=== PATIENT | female | born 1985 | race Caucasian/White ===

== ENCOUNTER 2016-12-28 09:35 | Outpatient (CLI) | payer MEDICAID ==
[2016-12-28 14:14] LABS: BASOPHILS % (AUTO) 0.6 %; EOSINOPHILS # (AUTO) 0.1 10^3/uL (0.0-0.7); EOSINOPHILS % (AUTO) 1.2 %; HCT - HEMATOCRIT 38.8 % (37.0-47.0); HGB - HEMOGLOBIN 13.6 g/dL (12.0-16.0); LYMPHOCYTES # (AUTO) 1.3 10^3/uL (1.5-3.5); LYMPHOCYTES % (AUTO) 28.4 %; MEAN CORPUSCULAR HEMOGLOBIN 33.6 pg (27.0-31.0); MEAN PLATELET VOLUME 9.1 fL (7.9-10.8); MONOCYTES # (AUTO) 0.4 10^3/uL (0.0-1.0); MONOCYTES % (AUTO) 7.8 %; NEUTROPHILS # (AUTO) 2.8 10^3/uL (1.5-6.6); RED BLOOD COUNT 4.04 10^6/uL (4.20-5.40); RED CELL DISTRIBUTION WIDTH 11.7 % (12.0-15.0); UNCORRECTED WHITE BLOOD COUNT 4.5 x10^3/uL; WHITE BLOOD COUNT 4.5 x10^3/uL (4.8-10.8)
[2016-12-28 14:32] LABS: ALBUMIN/GLOBULIN RATIO 1.9 (1.0-2.2); BUN - BLOOD UREA NITROGEN 8 mg/dL (6-20); CALCIUM 9.5 mg/dL (8.5-10.3); CARBON DIOXIDE - CO2 27 mmol/L (21-32); CHLORIDE 103 mmol/L (101-111); CHOL/HDL RATIO 2.8 (<4.4); CHOLESTEROL 174 mg/dL; CREATININE 0.7 mg/dL (0.4-1.0); GFR - MDRD 97 (>89); GLUCOSE 92 mg/dL (70-100); HDL CHOLESTEROL 63 mg/dL; LDL/HDL RATIO 1.5 (<4.4); POTASSIUM 3.9 mmol/L (3.5-5.0); SODIUM 135 mmol/L (135-145); TOTAL PROTEIN 6.6 g/dL (6.7-8.2); TRIGLYCERIDES 73 mg/dL; VLDL CHOLESTEROL 15 mg/dL
[2016-12-28 14:58] LABS: THYROID STIMULATING HORMONE 1.37 uIU/mL (0.34-5.60)
== END 2016-12-28 09:36 | disposition home or self-care (01) ==
LOC: LAB.N 09:35
PROVIDERS: ATTEND Family Medicine
DX: N92.6 Irregular menstruation, unspecified (principal); G40.89 Other seizures; Z51.81 Encounter for therapeutic drug level monitoring
CPT/HCPCS: 36415; 80053; 80061; 84439; 84443; 85025

== ENCOUNTER 2017-06-01 10:59 | Emergency (ER) | payer MEDICAID ==
[2017-06-01 11:14] VITALS: BP 125/78
--- NOTE | 2017-06-01 12:10 | ED Physician Documentation ---
PD HPI URI - Stated complaint Stated Complaint: SORE THROAT,H/A - Chief complaint Chief Complaint: Resp - History obtained from History obtained from: Patient - History of Present Illness Timing - onset: Other (3 days of illness including cough, sore throat, runny nose, all over body pain especially the lungs and fevers and chills.) Review of Systems Constitutional: reports: Fever, Chills, Myalgias, Fatigue Nose: reports: Rhinorrhea / runny nose Throat: reports: Sore throat Respiratory: reports: Dyspnea, Cough GI: denies: Abdominal Pain PD PAST MEDICAL HISTORY - Past Medical History Past Medical History: Yes Neuro: Seizure disorder - Past Surgical History Past Surgical History: Yes Ortho: Spine surgery - Present Medications Home Medications: Ambulatory Orders Medication Instructions Recorded Confirmed Azithromycin [Zithromax] 250 mg PO DAILY #6 tablet 06/01/17 Ibuprofen [Motrin] 800 mg PO Q8H PRN #30 tablet 06/01/17 Levetiracetam [Keppra Xr] 1,500 mg PO BID 06/01/17 06/01/17 - Allergies Allergies/Adverse Reactions: Allergies Allergy/AdvReac Type Severity Reaction Status Date / Time No Known Drug Allergies Allergy Verified 06/01/17 11:13 - Social History Does the pt smoke?: Yes Smoking Status: Current every day smoker Does the pt drink ETOH?: Yes ETOH Use: Beer Does the pt have substance abuse?: No - Immunizations Immunizations are current?: Yes - POLST Patient has POLST: No PD ED PE NORMAL - Vitals Vital signs reviewed: Yes - General General: Alert and oriented X 3, No acute distress - HEENT HEENT: PERRL, EOMI, Ears normal, Moist mucous membranes, Pharynx benign - Neck Neck: Supple, no meningeal sign, No bony TTP - Cardiac Cardiac: RRR, No murmur - Respiratory Respiratory: No respiratory distress, Clear bilaterally - Abdomen Abdomen: Non tender - Derm Derm: No rash - Neuro Neuro: Alert and oriented X 3, Normal speech - Psych Psych: Normal mood, Normal affect Results - Vitals Vitals: Vital Signs - 24 hr 06/01/17 11:08 Temperature 37.5 C Heart Rate 94 Respiratory 18 Rate Blood Pressure 125/78 O2 Saturation 97 Oxygen O2 Source Room air - Rads (name of study) 2v chest Radiology: EMP read contemporaneously (perihilar and bibasilar infiltrates) PD MEDICAL DECISION MAKING - ED course ED course: Likely influenza, somewhat irrelevant at this point as she is out of the timeframe for Tamiflu effectiveness. She is very worried about pneumonia despite no clinical evidence of this, chest x-ray ordered. Departure - Departure Disposition: 01 Home, Self Care Clinical Impression: Upper respiratory tract infection Qualifiers: URI type: unspecified viral URI Qualified Code(s): J06.9 - Acute upper respiratory infection, unspecified Pneumonia Qualifiers: Pneumonia type: due to unspecified organism Laterality: bilateral Lung location : unspecified part of lung Qualified Code(s): J18.9 - Pneumonia, unspecified organism Condition: Good Record reviewed to determine appropriate education?: Yes Instructions: ED Viral Syndrome Prescriptions: Azithromycin [Zithromax] 250 mg PO DAILY #6 tablet Ibuprofen [Motrin] 800 mg PO Q8H PRN #30 tablet PRN Reason: PAIN &/OR FEVER Comments: Call your doctor to arrange a follow-up appointment, make the next available appointment. In the interim, return anytime if worse or if new symptoms develop.
--- NOTE | 2017-06-01 13:35 | XRAY Preliminary Report ---
Exam: XR CHEST 2 VIEW X-RAY IMPRESSION: 1. Bilateral perihilar and anterior bibasilar infiltrates. 2. Mediastinal adenopathy. [facility] SITE ID: [id number]
--- NOTE | 2017-06-01 14:34 | XRAY Report ---
EXAM: CHEST RADIOGRAPHY EXAM DATE: 06/01/2017 12:39 PM. CLINICAL HISTORY: Cough, midsternal chest pain and dyspnea for 2 days. COMPARISON: None. TECHNIQUE: 2 views. FINDINGS: Lungs/Pleura: Moderate bilateral perihilar interstitial infiltrates. Patchy interstitial infiltrates right middle lobe and lingula. Normal lung volumes. No effusion, vascular congestion nor pneumothorax . Mediastinum: Heart is normal caliber. Widening of the paratracheal stripes. No tracheal shift. Other: None. IMPRESSION: 1. Bilateral perihilar and anterior bibasilar infiltrates. 2. Mediastinal adenopathy. [facility] Referring Provider Line: [phone] SITE ID: [id number]
== END 2017-06-01 14:00 | disposition home or self-care (01) ==
LOC: ED 10:59
DX: J18.9 Pneumonia, unspecified organism (principal); J06.9 Acute upper respiratory infection, unspecified; B97.89 Other viral agents as the cause of diseases classified elsewhere; G40.909 Epilepsy, unspecified, not intractable, without status epilepticus; F17.200 Nicotine dependence, unspecified, uncomplicated
CPT/HCPCS: 71046; 99283

== ENCOUNTER 2017-06-07 09:52 | Outpatient (CLI) | payer MEDICAID ==
[2017-06-11 09:57] LABS: LEVETIRACETAM (KEPPRA) LEVEL 28.7 mcg/mL
== END 2017-06-07 09:53 | disposition home or self-care (01) ==
LOC: LAB.N 09:52
PROVIDERS: ATTEND Psychiatry & Neurology Neurology
DX: G40.409 Other generalized epilepsy and epileptic syndromes, not intractable, without status epilepticus (principal); E55.9 Vitamin D deficiency, unspecified
CPT/HCPCS: 36415; 80177; 82306; 82652

== ENCOUNTER 2017-09-13 11:45 | Outpatient (CLI) | payer OTHER, MEDICAID | END 2017-09-13 12:00 | disposition home or self-care (01) | LOC: RT.N 11:45 | PROVIDERS: ATTEND Nurse Practitioner Gerontology | DX: R07.9 Chest pain, unspecified (principal); J30.2 Other seasonal allergic rhinitis; J06.9 Acute upper respiratory infection, unspecified; D48.5 Neoplasm of uncertain behavior of skin | CPT/HCPCS: 93005 ==

== ENCOUNTER 2017-11-14 16:07 | Outpatient (CLI) | payer OTHER, MEDICAID ==
--- NOTE | 2017-11-15 08:55 | XRAY Report ---
Procedure Date: 11/14/2017 Accession Number: [id number] / [id number] Procedure: XR - Chest 2 View X-Ray CPT Code: 06144 FULL RESULT: EXAM: Chest 2 View X-Ray DATE: 11/14/2017 4:24 PM CLINICAL HISTORY: CHEST PAIN COMPARISON: 06/01/2017. TECHNIQUE: 2 views. FINDINGS: Lungs/Pleura: No focal opacities evident. No pneumothorax or pleural effusion. Normal volumes. Mediastinum: Heart and mediastinal contours are unremarkable. Other: None. IMPRESSION: Normal 2-view chest radiography. [facility]
== END 2017-11-14 16:08 | disposition home or self-care (01) ==
LOC: DI 16:07
PROVIDERS: ATTEND Family Medicine
DX: R07.9 Chest pain, unspecified (principal)
CPT/HCPCS: 71046

== ENCOUNTER 2019-07-11 07:16 | Outpatient (CLI) | payer OTHER ==
[2019-07-11 12:10] LABS: BASOPHILS % (AUTO) 0.3 %; EOSINOPHILS # (AUTO) 0.1 10^3/uL (0.0-0.7); EOSINOPHILS % (AUTO) 1.3 %; HGB - HEMOGLOBIN 13.9 g/dL (12.0-16.0); LYMPHOCYTES # (AUTO) 1.5 10^3/uL (1.5-3.5); LYMPHOCYTES % (AUTO) 23.9 %; MEAN CORPUSCULAR HEMOGLOBIN 32.8 pg (27.0-31.0); MEAN CORPUSCULAR HGB CONC 34.3 g/dL (32.0-36.0); MEAN CORPUSCULAR VOLUME 95.5 fL (81.0-99.0); MEAN PLATELET VOLUME 11.1 fL (7.9-10.8); MONOCYTES # (AUTO) 0.5 10^3/uL (0.0-1.0); MONOCYTES % (AUTO) 7.4 %; NEUTROPHILS # (AUTO) 4.1 10^3/uL (1.5-6.6); NEUTROPHILS % (AUTO) 66.8 %; PLT - PLATELET COUNT 213 10^3/uL (130-450); RED BLOOD COUNT 4.24 10^6/uL (4.20-5.40); RED CELL DISTRIBUTION WIDTH 11.9 % (12.0-15.0); WHITE BLOOD COUNT 6.1 x10^3/uL (4.8-10.8)
[2019-07-11 12:21] LABS: ALBUMIN 4.4 g/dL (3.2-5.5); ALBUMIN/GLOBULIN RATIO 1.9 (1.0-2.2); BILIRUBIN,TOTAL 1.1 mg/dL (0.2-1.0); CALCIUM 10.2 mg/dL (8.5-10.3); CREATININE 0.7 mg/dL (0.4-1.0); TOTAL PROTEIN 6.7 g/dL (6.7-8.2)
== END 2019-07-11 23:59 | disposition home or self-care (01) ==
LOC: LAB.N 07:16
PROVIDERS: ATTEND Nurse Practitioner Gerontology
DX: R53.83 Other fatigue (principal)
CPT/HCPCS: 36415; 80053; 84443; 85025

== ENCOUNTER 2019-08-02 21:54 | Emergency (ER) | payer OTHER ==
--- NOTE | 2019-08-02 21:59 | ED Physician Documentation ---
PD HPI CHEST PAIN - Stated complaint Stated Complaint: CHEST PRESSURE - Chief complaint Chief Complaint: Cardiac - History obtained from History obtained from: Patient (Patient is a very pleasant 34-year-old female who presents with a chief complaint of palpitations. takes vimpat for seizures. The patient is also complaining of anxiety and she is very concerned that she could have covid 19.The patient denies any syncopal episodes she denies any fevers, cough, headache, neck pain, rashes, sore throat, runny nose. She denies any history of pulmonary embolism or DVT she denies any exogenous estrogen use she denies any recent surgeries she denies any personal family history of hypercoagulability denies any family history of sudden in young age and mother, father, brother sister.Patient denies any illicit drug use.) Review of Systems Constitutional: reports: Reviewed and negative Eyes: reports: Reviewed and negative Ears: reports: Reviewed and negative Nose: reports: Reviewed and negative Throat: reports: Reviewed and negative Cardiac: reports: Chest pain / pressure, Palpitations Respiratory: reports: Reviewed and negative GI: reports: Reviewed and negative : reports: Reviewed and negative Skin: reports: Reviewed and negative Musculoskeletal: reports: Reviewed and negative Neurologic: reports: Reviewed and negative Psychiatric: reports: Reviewed and negative Endocrine: reports: Reviewed and negative Immunocompromised: reports: Reviewed and negative PD PAST MEDICAL HISTORY - Past Surgical History Past Surgical History: Yes Ortho: Spine surgery - Present Medications Home Medications: Ambulatory Orders Medication Instructions Recorded Confirmed Lacosamide [Vimpat] 100 mg PO BID 08/02/19 08/02/19 - Allergies Allergies/Adverse Reactions: Allergies Allergy/AdvReac Type Severity Reaction Status Date / Time No Known Drug Allergies Allergy Verified 08/02/19 21:59 - Social History Does the pt smoke?: Yes Smoking Status: Current every day smoker Does the pt drink ETOH?: Yes Does the pt have substance abuse?: No - Immunizations Immunizations are current?: Yes - POLST Patient has POLST: No PD ED PE NORMAL - Vitals Vital signs reviewed: Yes - General General: Alert and oriented X 3, No acute distress, Well developed/nourished - HEENT HEENT: Atraumatic, PERRL, Pharynx benign - Neck Neck: Supple, no meningeal sign, No bony TTP, No adenopathy, Thyroid normal, No JVD - Cardiac Cardiac: RRR, No murmur, No gallop, No rub, Strong equal pulses - Respiratory Respiratory: No respiratory distress, Clear bilaterally - Abdomen Abdomen: Normal bowel sounds, Soft, Non tender, Non distended, No organomegaly - Female Female : Pt declined - Rectal Rectal: Pt declined - Back Back: No CVA TTP, No spinal TTP - Derm Derm: Normal color, Warm and dry, No rash - Extremities Extremities: No deformity, No tenderness to palpate, Normal ROM s pain, No edema, No calf tenderness / cord - Neuro Neuro: Alert and oriented X 3, 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, No motor deficit, No sensory deficit, Normal speech - Psych Psych: Normal mood, Normal affect Results - Vitals Vitals: Vital Signs - 24 hr 08/02/19 08/02/19 08/02/19 21:58 22:00 22:10 Temperature 37.0 C Heart Rate 77 79 Respiratory 16 16 Rate Blood Pressure 141/88 H 141/88 H Blood Pressure 141/88 H [Left] Blood Pressure 119/63 [Right] O2 Saturation 100 100 08/02/19 08/02/19 08/02/19 22:34 22:50 23:05 Temperature Heart Rate 78 73 79 Respiratory 24 20 16 Rate Blood Pressure 119/63 116/70 130/82 H Blood Pressure [Left] Blood Pressure [Right] O2 Saturation 98 98 98 Oxygen O2 Source Room air - EKG (time done) 22:05 Rate: Other (no stemi) - Labs Labs: Laboratory Tests 08/02/19 08/02/19 08/02/19 22:00 22:00 22:00 WBC 5.9 RBC 4.49 Hgb 14.2 Hct 42.4 MCV 94.4 MCH 31.6 H MCHC 33.5 RDW 12.0 Plt Count 192 MPV 10.0 Neut # (Auto) 3.3 Lymph # (Auto) 1.9 [place] # (Auto) 0.5 Eos # (Auto) 0.1 Baso # (Auto) 0.0 Absolute Nucleated RBC 0.00 Nucleated RBC % 0.0 Sodium 136 Potassium 3.5 Chloride 103 Carbon Dioxide 25 Anion Gap 8.0 BUN 9 Creatinine 0.7 Estimated GFR (MDRD) 95 Glucose 99 Calcium 10.3 Total Bilirubin 0.4 AST 17 ALT 18 Alkaline Phosphatase 61 Troponin I High Sens < 2.3 L Total Protein 7.5 Albumin 4.6 Globulin 2.9 Albumin/Globulin Ratio 1.6 Lipase 28 PD MEDICAL DECISION MAKING - ED course Complexity details: considered differential (heart score 0, perc 0. patient c/o anxiety and is concerned she could have covid 19. ekg is unremarkable, no cough, no fever, hx and exam are unremarkable.) Departure - Departure Disposition: 01 Home, Self Care Clinical Impression: Palpitations Condition: Stable Instructions: ED Chest Pain NonCardiac, ED Palpitations Follow-Up: your, doctor [Other] - Tomorrow
[2019-08-02 22:17] LABS: BASOPHILS % (AUTO) 0.3 %; EOSINOPHILS # (AUTO) 0.1 10^3/uL (0.0-0.7); EOSINOPHILS % (AUTO) 1.5 %; HGB - HEMOGLOBIN 14.2 g/dL (12.0-16.0); LYMPHOCYTES # (AUTO) 1.9 10^3/uL (1.5-3.5); LYMPHOCYTES % (AUTO) 32.1 %; MEAN CORPUSCULAR HEMOGLOBIN 31.6 pg (27.0-31.0); MEAN CORPUSCULAR HGB CONC 33.5 g/dL (32.0-36.0); MEAN CORPUSCULAR VOLUME 94.4 fL (81.0-99.0); MONOCYTES # (AUTO) 0.5 10^3/uL (0.0-1.0); NEUTROPHILS # (AUTO) 3.3 10^3/uL (1.5-6.6); NEUTROPHILS % (AUTO) 56.8 %; PLT - PLATELET COUNT 192 10^3/uL (130-450); RED BLOOD COUNT 4.49 10^6/uL (4.20-5.40); WHITE BLOOD COUNT 5.9 x10^3/uL (4.8-10.8)
[2019-08-02 22:34] LABS: ALBUMIN 4.6 g/dL (3.2-5.5); ALBUMIN/GLOBULIN RATIO 1.6 (1.0-2.2); BILIRUBIN,TOTAL 0.4 mg/dL (0.2-1.0); CALCIUM 10.3 mg/dL (8.5-10.3); CREATININE 0.7 mg/dL (0.4-1.0); TOTAL PROTEIN 7.5 g/dL (6.7-8.2)
[2019-08-02] MEDS ORDERED: LORazepam 2 MG/ML VIAL IVP STA (22:42)
[2019-08-02 23:06] VITALS: BP 130/82
--- NOTE | 2019-08-02 23:06 | XRAY Report ---
Reason: cp Procedure Date: 08/02/2019 Accession Number: [id number] / [id number] Procedure: XR - Chest 1 View X-Ray CPT Code: 76758 Final Report FULL RESULT: EXAM: CHEST RADIOGRAPHY EXAM DATE: 08/02/2019 10:28 PM. CLINICAL HISTORY: Cp. COMPARISON: CHEST 2 VIEW 11/14/2017 4:14 PM. TECHNIQUE: 1 view. FINDINGS: Lungs/Pleura: No focal opacities evident. No pleural effusion. No pneumothorax. Mediastinum: Within exam limitations, the cardiomediastinal contour is normal. Other: None. IMPRESSION: Normal single view chest. [facility]
== END 2019-08-02 23:19 | disposition home or self-care (01) ==
LOC: ED 21:54
DX: R00.2 Palpitations (principal); F17.200 Nicotine dependence, unspecified, uncomplicated
CPT/HCPCS: 36415; 71045; 80053; 83690; 84484; 85025; 93005; 96374; 99283; 99284; J2060

== ENCOUNTER 2019-10-24 13:20 | Emergency (ER) | payer OTHER ==
[2019-10-24 13:27] VITALS: BP 145/85
--- NOTE | 2019-10-24 13:36 | ED Physician Documentation ---
History of Present Illness - Stated complaint Stated Complaint: MED REFILL - Chief complaint Chief Complaint: General - History obtained from History obtained from: Patient - History of Present Illness Timing: Today Pain level max: 0 Pain level now: 0 - Additonal information Additional information: Patient is out of her Vimpat, neurology told her to come here as there was no one to prescribe for her. She is on 100 mg p.o. twice daily. Review of Systems Constitutional: denies: Fever GI: denies: Vomiting : denies: Now EGA PD PAST MEDICAL HISTORY - Past Medical History Past Medical History: Yes Neuro: Seizure disorder - Past Surgical History Past Surgical History: Yes Ortho: Spine surgery Derm: Other - Present Medications Home Medications: Ambulatory Orders Medication Instructions Recorded Confirmed Lacosamide [Vimpat] 100 mg PO BID 08/02/19 08/02/19 Lacosamide [Vimpat] 100 mg PO BID #60 tablet 10/24/19 - Allergies Allergies/Adverse Reactions: Allergies Allergy/AdvReac Type Severity Reaction Status Date / Time No Known Drug Allergies Allergy Verified 10/24/19 13:24 - Social History Does the pt smoke?: Yes Smoking Status: Current every day smoker Does the pt drink ETOH?: Yes Does the pt have substance abuse?: No - Immunizations Immunizations are current?: Yes - POLST Patient has POLST: No PD ED PE NORMAL - Vitals Vital signs reviewed: Yes - General General: Alert and oriented X 3, No acute distress - HEENT HEENT: Moist mucous membranes - Neck Neck: Supple, no meningeal sign - Cardiac Cardiac: RRR - Respiratory Respiratory: No respiratory distress, Clear bilaterally - Derm Derm: Warm and dry - Neuro Neuro: Alert and oriented X 3 Results - Vitals Vitals: Vital Signs - 24 hr 10/24/19 13:24 Temperature 36.5 C Heart Rate 76 Respiratory 16 Rate Blood Pressure 145/85 H O2 Saturation 99 Oxygen O2 Source Room air PD MEDICAL DECISION MAKING - ED course Complexity details: considered differential, d/w patient ED course: Medication was refilled. She will follow-up with her doctor for further refills. This document was made in part using voice recognition software. While efforts are made to proofread this document, sound alike and grammatical errors may occur. Departure - Departure Disposition: 01 Home, Self Care Clinical Impression: Seizures Condition: Good Follow-Up: your,doctor as needed [Other] Prescriptions: Lacosamide [Vimpat] 100 mg PO BID #60 tablet Comments: Follow-up with your doctor for further care. Return if you worsen.
== END 2019-10-24 13:45 | disposition home or self-care (01) ==
LOC: ED 13:20
DX: G40.909 Epilepsy, unspecified, not intractable, without status epilepticus (principal); Z76.0 Encounter for issue of repeat prescription; F17.200 Nicotine dependence, unspecified, uncomplicated
CPT/HCPCS: 99282; 99283

== ENCOUNTER 2021-01-12 08:00 | Outpatient (CLI) | payer OTHER | END 2021-01-12 23:59 | disposition home or self-care (01) | LOC: LAB.N 08:00 | PROVIDERS: ATTEND Family Medicine | DX: U07.1 COVID-19 (principal) | CPT/HCPCS: 87070; 87077 ==

== ENCOUNTER 2021-01-12 08:00 | Outpatient (CLI) | payer OTHER | END 2021-01-12 23:59 | disposition home or self-care (01) | LOC: LAB.N 08:00 | PROVIDERS: ATTEND Family Medicine | DX: U07.1 COVID-19 (principal) ==

== ENCOUNTER 2021-01-25 14:45 | Outpatient (CLI) | payer OTHER | END 2021-01-25 23:59 | disposition home or self-care (01) | LOC: LAB.N 14:45 | PROVIDERS: ATTEND Family Medicine | DX: M79.661 Pain in right lower leg (principal) | CPT/HCPCS: 36415; 85379 ==

== ENCOUNTER 2022-08-30 16:51 | Outpatient (CLI) | payer OTHER | END 2022-08-30 23:59 | disposition critical access hospital (66) | LOC: EMS 16:51 | DX: R56.9 Unspecified convulsions (principal) | CPT/HCPCS: A0425; A0429 ==

== ENCOUNTER 2022-08-30 17:09 | Emergency (ER) | payer OTHER ==
[2022-08-30] MEDS ORDERED: SODIUM CHLORIDE 0.9% 1,000 ML IV STA (17:27)
--- NOTE | 2022-08-30 17:29 | ED Physician Documentation ---
History of Present Illness - Stated complaint Stated Complaint: SZ - Chief complaint Chief Complaint: Neuro - Additonal information Additional information: 37-year-old female presents emergency department for evaluation of a seizure. She does have a known seizure disorder. Currently takes lacosamide 100 mg twice daily. States she has not had a seizure for about 10 years. Followed by neurology at [facility]. States that for the last 2 days she has had some lower abdominal pain and diarrhea. States she felt off all day. She thought that she felt a seizure coming on and she ran to find a safe place however ultimately she seized falling to the ground. Per EMS witnesses report that she seized for about 30 seconds. She was postictal in route for EMS with confusion though by the time she arrives here she no longer is confused. She was not hypoglycemic. Currently reporting a severe headache on the left side of her head as well as left shoulder. Review of Systems Constitutional: denies: Fever Throat: reports: Reviewed and negative Cardiac: reports: Reviewed and negative Respiratory: reports: Reviewed and negative GI: reports: Diarrhea : reports: Reviewed and negative Skin: reports: Reviewed and negative Neurologic: reports: Seizure, Head injury. denies: Headache Psychiatric: reports: Reviewed and negative Endocrine: reports: Reviewed and negative PD PAST MEDICAL HISTORY - Past Medical History Neuro: Seizure disorder - Past Surgical History Past Surgical History: Yes Ortho: Spine surgery Derm: Other - Present Medications Home Medications: Ambulatory Orders Medication Instructions Recorded Confirmed Lacosamide [Vimpat] 100 mg PO BID #60 tablet 10/24/19 08/30/22 oxyCODONE [Roxicodone] 5 mg PO TID PRN #10 tablet 08/30/22 - Allergies Allergies/Adverse Reactions: Allergies Allergy/AdvReac Type Severity Reaction Status Date / Time No Known Drug Allergies Allergy Verified 08/30/22 17:19 - Social History Does the pt smoke?: Yes Smoking Status: Current every day smoker Does the pt drink ETOH?: Yes Does the pt have substance abuse?: No - Immunizations Immunizations are current?: Yes - POLST Patient has POLST: No PD ED PE NORMAL - General General: Alert and oriented X 3, No acute distress, Well developed/nourished - HEENT HEENT: Atraumatic, Moist mucous membranes - Neck Neck: Other (Patient presents with a rigid cervical collar; 1900: I personally remove the collar at the bedside. There was no midline tenderness elicited. 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, No motor deficit, Normal speech Eye Opening: Spontaneous Motor: Obeys Commands Verbal: Oriented GCS Score: 15 Results - Vitals Vitals: Vital Signs - 24 hr 08/30/22 17:17 Temperature 37.1 C Heart Rate 112 H Respiratory 22 Rate Blood Pressure 143/98 H O2 Saturation 98 Oxygen O2 Source Room air - Labs Labs: Laboratory Tests 08/30/22 08/30/22 08/30/22 17:30 17:30 18:45 WBC 7.6 RBC 4.33 Hgb 13.8 Hct 40.3 MCV 93.1 MCH 31.9 H MCHC 34.2 RDW 11.9 L Plt Count 192 MPV 10.2 Neut # (Auto) 5.4 Lymph # (Auto) 1.5 [place] # (Auto) 0.4 Eos # (Auto) 0.2 Baso # (Auto) 0.0 Absolute Nucleated RBC 0.00 Nucleated RBC % 0.0 Sodium 139 Potassium 3.6 Chloride 103 Carbon Dioxide 25 Anion Gap 11.0 BUN 10 Creatinine 0.6 Estimated GFR (MDRD) 112 Glucose 98 Calcium 9.4 Total Bilirubin 0.4 AST 18 ALT 15 Alkaline Phosphatase 54 Total Protein 7.1 Albumin 4.4 Globulin 2.7 Albumin/Globulin Ratio 1.6 Lipase 35 Urine Color YELLOW Urine Clarity CLEAR Urine pH 6.5 Ur Specific Hi Hat 1.010 Urine Protein NEGATIVE Urine Glucose (UA) NEGATIVE Urine Ketones NEGATIVE Urine Occult Blood MODERATE H Urine Nitrite NEGATIVE Urine Bilirubin NEGATIVE Urine Urobilinogen 0.2 (NORMAL) Ur Leukocyte Esterase NEGATIVE Ur Microscopic Review INDICATED Urine Culture Comments Not Reportable Urine HCG, Qual NEGATIVE - Rads (name of study) left shoulder xr Relevant Findings:: Final report received (no acute fracture) CT head Relevant Findings:: Final report received (No acute abnormality can be seen by noncontrast CT head. No cause of seizures is identified) cervical CT Relevant Findings:: Final report received (Negative for acute fracture. Premature cervical spine degenerative changes are seen which are worse at C4-C5) PD Medical Decision Making - ED course Complexity details: reviewed results, d/w patient ED course: 37-year-old female presents emergency department for evaluation of seizure activity that was witnessed at work. She does have a known seizure activity. Currently taking lacosamide 100 mg twice daily. Reports last seizure was more than 10 years ago. Over the last several days she has had a mild stomach illness which has included some mild nausea and diarrhea. No fevers. She stated that she felt generally unwell at work today and had a aura prior to having the seizure. She attempted to find safe [place] and was running when she suddenly collapsed and seized. Witnesses report a seizure lasting about 30 minutes was described as generalized tonic. EMS arrived and she was postictal and confused but by the time she arrived to the emergency department was no longer confused. She was nonfocal nonlateralizing. Her blood glucose was normal. Patient reported a severe left-sided headache as well as left shoulder pain. Appears that she fell on her left side when she collapsed. CT of the head and neck were negative for acute findings though she does have moderate degenerative disc disease unexpected given her age. X-ray left shoulder was negative. Did obtain CBC, electrolytes as well as urine drug screen and per my interpretation no acute worrisome findings are seen. No evidence of urinary tract infection. She is not . At this time the patient has remained monitored in the emergency department for about 2 hours. She moans nonfocal. Alert and well-appearing. No worrisome vital sign abnormalities. She will be discharged home to follow closely with her neurologist. She was advised closely not to drive or operate a vehicle until cleared by her neurologist Patient does have some moderate pain in her neck especially with lateral rotation none of this is midline. I suspect sprain and contusion after the fall. A limited prescription for oxycodone has been sent to her preferred pharmacy. The usual emergent return precautions were discussed for worsening symptoms. I am prescribing a short course of short-acting opioid pain medication for this patient. 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 I have discussed that the opioids are for short term therapy only, and will not be refilled from the ED. Departure - Departure Disposition: Home, Self Care Clinical Impression: Seizure, Neck pain Headache Qualifiers: Headache type: post-traumatic Headache chronicity pattern: acute headache Intractability: not intractable Qualified Code(s): G44.319 - Acute post- traumatic headache, not intractable Shoulder contusion Qualifiers: Encounter type: initial encounter Laterality: left Qualified Code(s): S40.012A - Contusion of left shoulder, initial encounter Degenerative joint disease of cervical spine Qualifiers: Spinal osteoarthritis complication: without myelopathy or radiculopathy Qualified Code(s): M47.812 - Spondylosis without myelopathy or radiculopathy, cervical region Condition: Stable Record reviewed to determine appropriate education?: Yes Instructions: ED Contusion Upper Extr Ch, ED Neck Back Pain General Prescriptions: oxyCODONE [Roxicodone] 5 mg PO TID PRN #10 tablet PRN Reason: Pain Comments: Dior dorsey are seen today in the emergency department because you had a seizure while at work. Over the last several mornings you have not been feeling well and have had some diarrhea. This is most likely a mild viral stomach flu. You did have a witnessed seizure at work that lasted about 30 seconds. You report your last seizure about 10 years ago. When you fell you did strike your head and neck and shoulder on the ground. We did do a CT of the head and neck. There is no bruising or bleeding within the b rain. You do have some early degenerative disc disease of the cervical spine but there were no fractures. An x-ray of your shoulder also showed no obvious fractures. Your labs today in the ER were without any worrisome findings. You are not . Please continue to take the lacosamide as already prescribed. You cannot drive or operate a vehicle until cleared by your neurologist. I suspect that you will be very sore and uncomfortable of the next several days. I recommend you take Tylenol or ibuprofen for discomfort. For more severe pain I have written for a limited prescription of Oxcodone At any point you find that you have worsening symptoms, uncontrolled vomiting, vision change, uncontrolled seizures at home or develop any fevers and please return immediately to the ER. I am prescribing a short course of narcotic pain medication for you. These are potentially dangerous and addictive medications that should be used carefully. These medications may constipate you. Take an [id number] stool softener (docusate) twice daily with plenty of water while taking these medications. If you go 24 hours without a bowel movement, take [id number] miralax, per package instructions. Do not drink or drive while taking these medications. If you received narcotic or sedating medications while in the emergency department, do not drive for 24 hours. Store this medication in a safe, secure place and out of reach of children. It is a violation of federal law to give or sell this medication to another person or to use in a manner other than prescribed. The ED will not refill narcotic prescriptions, including prescriptions lost or stolen. To dispose of unwanted medications: 1. [facility] at [address] in [place] has a medication drop box. They accept prescription medications (in pill form) Sunday through Sunday 9:00 a.m. to 5:00 p.m. 2. [facility] accepts prescription medications (in pill form only) for disposal year round. Call for more information. 3. Contact the [facility] for the next [facility] sponsored prescription drug collection event. , x7310, or x2218; Note that many narcotic pain relievers also contain Tylenol/acetaminophen. Please ensure that your total dose of acetaminophen from all sources does not exceed 3 g (3000 mg) per day.
[2022-08-30 17:45] LABS: BASOPHILS % (AUTO) 0.4 %; EOSINOPHILS # (AUTO) 0.2 10^3/uL (0.0-0.7); EOSINOPHILS % (AUTO) 3.2 %; HCT - HEMATOCRIT 40.3 % (37.0-47.0); HGB - HEMOGLOBIN 13.8 g/dL (12.0-16.0); LYMPHOCYTES # (AUTO) 1.5 10^3/uL (1.5-3.5); LYMPHOCYTES % (AUTO) 19.7 %; MEAN CORPUSCULAR HEMOGLOBIN 31.9 pg (27.0-31.0); MEAN CORPUSCULAR HGB CONC 34.2 g/dL (32.0-36.0); MEAN CORPUSCULAR VOLUME 93.1 fL (81.0-99.0); MEAN PLATELET VOLUME 10.2 fL (7.9-10.8); MONOCYTES # (AUTO) 0.4 10^3/uL (0.0-1.0); MONOCYTES % (AUTO) 5.8 %; NEUTROPHILS # (AUTO) 5.4 10^3/uL (1.5-6.6); NEUTROPHILS % (AUTO) 70.6 %; PLT - PLATELET COUNT 192 10^3/uL (130-450); RED BLOOD COUNT 4.33 10^6/uL (4.20-5.40); RED CELL DISTRIBUTION WIDTH 11.9 % (12.0-15.0); WHITE BLOOD COUNT 7.6 x10^3/uL (4.8-10.8)
[2022-08-30] MEDS ORDERED: HYDROmorphone 1 MG/ML CARPUJECT IVP STA (17:49)
--- NOTE | 2022-08-30 18:06 | XRAY Report ---
PROCEDURE: Shoulder 3 View LT INDICATIONS: pain after seizure/fall TECHNIQUE: 3 views of the shoulder were acquired. COMPARISON: None. FINDINGS: Bones: No acute fracture. No dislocation. Soft tissues: No suspicious calcifications. IMPRESSION: No acute radiographic abnormality. If there is high concern for occult injury, consider repeat radiog clifton or cross-sectional imaging. Axillary view can better evaluate glenohumeral alignment if there i s concern. Reviewed by: Carlos Flores MD on 08/30/2022 6:05 PM PDT Approved by: Carlos Flores MD on 08/30/2022 6:05 PM PDT Station ID: [id number]
[2022-08-30 18:12] LABS: ALBUMIN 4.4 g/dL (3.2-5.5); ALBUMIN/GLOBULIN RATIO 1.6 (1.0-2.2); BILIRUBIN,TOTAL 0.4 mg/dL (0.2-1.0); CALCIUM 9.4 mg/dL (8.5-10.3); CREATININE 0.6 mg/dL (0.4-1.0); POTASSIUM 3.6 mmol/L (3.5-5.0); TOTAL PROTEIN 7.1 g/dL (6.7-8.2)
[2022-08-30 18:51] LABS: MUDS CUTOFF CONCENTRATIONS CUTOFF CONC BELOW:
--- NOTE | 2022-08-30 18:51 | CT Report ---
PROCEDURE: HEAD WO INDICATIONS: seizure TECHNIQUE: Noncontrast 4.5 mm thick angled axial sections acquired from the foramen magnum to the vertex. For r adiation dose reduction, the following was used: automated exposure control, adjustment of mA and/or kV according to patient size. COMPARISON: Correlation is made with the accompanying cervical spine CT, 08/30/2022. FINDINGS: Image quality: There is streak artifact seen through the skull base. CSF spaces: Basal cisterns are patent. Benign-appearing symmetric extra-axial fluid collections can be seen superior to the cerebral hemispheres, as seen on series 4 image 22. Ventricles are normal in size and shape. Brain: No midline shift. No intracranial masses or hemorrhage. Schmid-white matter interface is norm al. Skull and face: Calvarium and visualized facial bones are intact, without suspicious lesions. Sinuses: Visualized sinuses and mastoids are clear. IMPRESSION: No acute abnormality can be seen by noncontrast head CT. No cause of seizures is identified. Reviewed by: Danny Barry MD on 08/30/2022 5:50 PM AKJOHN Approved by: Danny Barry MD on 08/30/2022 5:50 PM AKJOHN Station ID: [id number]
--- NOTE | 2022-08-30 18:52 | CT Report ---
PROCEDURE: CERVICAL SPINE WO INDICATIONS: neck paina fter seizure TECHNIQUE: Noncontrast 3 mm thick sections acquired from the skull base to the T4 level. Sagittal and coronal r eformats were then constructed. For radiation dose reduction, the following was used: automated exp osure control, adjustment of mA and/or kV according to patient size. COMPARISON: Correlation is made with the accompanying head CT, 08/30/2022. FINDINGS: Image quality: This study is limited by quantum mottle artifact. Bones: No fractures or dislocations. Visualized superior ribs are intact. There is moderate disc space narrowing seen at C4-C5 and C5-C6. Posterior directed endplate osteophyt es can be seen at C4-C5. Mild endplate irregularity and sclerosis are seen at C4-C5. Milder degenerat barrett changes are seen elsewhere. Soft tissues: Prevertebral soft tissues are normal in thickness. No paravertebral hematomas. No ap ical pneumothoraces. IMPRESSION: Negative for acute fracture. Premature cervical spine degenerative changes are seen, which are worst at the C4-C5 level. Reviewed by: Danny Barry MD on 08/30/2022 5:51 PM ROGER Approved by: Danny Barry MD on 08/30/2022 5:51 PM ROGER Station ID: [id number]
[2022-08-30 18:55] LABS: BILIRUBIN,URINE NEGATIVE (NEGATIVE); GLUCOSE, URINE (UA) NEGATIVE (NEGATIVE); KETONES,URINE (UA) NEGATIVE (NEGATIVE); LEUKOCYTE ESTERASE, URINE NEGATIVE (NEGATIVE); NITRITE,URINE NEGATIVE (NEGATIVE); OCCULT BLOOD,URINE MODERATE (NEGATIVE); PH,URINE 6.5 PH (5.0-7.5); PROTEIN,URINE NEGATIVE (NEGATIVE); UROBILINOGEN,URINE 0.2 (NORMAL) E.U./dL (NORMAL)
[2022-08-30 18:58] LABS: CLARITY,URINE CLEAR (CLEAR)
[2022-08-30 18:59] LABS: HCG UR QUAL NEGATIVE
[2022-08-30] MEDS ORDERED: oxyCODONE 5 MG TABLET PO STA (19:04)
[2022-08-30 19:09] LABS: AMPHETAMINE SCREEN,URINE NEGATIVE (NEGATIVE); BACTERIA,URINE Few /HPF (None Seen); BARBITURATE SCREEN,UR NEGATIVE (NEGATIVE); BENZODIAZEPINES SCREEN, URINE NEGATIVE (NEGATIVE); COCAINE SCREEN URINE NEGATIVE (NEGATIVE); METHADONE SCREEN, URINE NEGATIVE (NEGATIVE); METHAMPHETAMINES SCREEN, URINE NEGATIVE (NEGATIVE); OPIATE SCREEN, URINE NEGATIVE (NEGATIVE); OXYCODONE SCREEN, URINE NEGATIVE (NEGATIVE); PROPOXYPHENE SCREEN, URINE NEGATIVE (NEGATIVE); RBC,URINE 0-5 /HPF (0-5); SQUAMOUS EPITHELIAL CELL,UR FEW Squamous (<= Few); THC CANNABINOID SCREEN, URINE NEGATIVE (NEGATIVE); TRICYCLIC ANTIDEPRESSANT,URINE NEGATIVE (NEGATIVE); WBC,URINE 0-3 /HPF (0-5)
[2022-08-30 20:05] VITALS: BP 133/86
== END 2022-08-30 20:04 | disposition home or self-care (01) ==
LOC: EDUNIT# → ED 17:09
DX: G40.909 Epilepsy, unspecified, not intractable, without status epilepticus (principal); R51.9 Headache, unspecified; S40.012A Contusion of left shoulder, initial encounter; W18.30XA Fall on same level, unspecified, initial encounter; Y99.0 Civilian activity done for income or pay; M47.812 Spondylosis without myelopathy or radiculopathy, cervical region; F17.200 Nicotine dependence, unspecified, uncomplicated; Z79.899 Other long term (current) drug therapy
CPT/HCPCS: 36415; 70450; 72125; 73030; 80053; 80306; 81001; 81025; 83690; 85025; 96374; 99284; A9270; J1170; 81003; 87086

== ENCOUNTER 2023-02-09 09:10 | Emergency (ER) | payer OTHER ==
--- NOTE | 2023-02-09 10:01 | ED Physician Documentation ---
PD HPI ALTERED MENTAL STATUS - Stated complaint Stated Complaint: SOA,REACTION TO MED,DIZZINESS,SHAKES - Chief complaint Chief Complaint: General - History obtained from History obtained from: Patient - History of Present Illness Timing - onset: How many weeks ago (The patient has been having episodes of lightheaded, dizziness and shakiness after taking lamotrigine. She had been prescribed this because of some breakthrough seizures on her lacosamide. She was increasing doses per direction and having worse symptoms. More significant the last few days.) Timing - details: Intermittant (She had been having side effects to oxcarbazepine and had been decreasing doses of that with increasing lamotrigine. Symptoms most notable an hour or 2 after the medications.) Quality / character: Agitated, Other (jittery, nauseated, and vertigo/dizziness.) Associated symptoms: No: Fever, Headache, Dyspnea, Cough Contributing factors: New medication Basline status: Alert and oriented X 3, Ambulatory Review of Systems Constitutional: denies: Fever, Chills Nose: denies: Rhinorrhea / runny nose, Congestion Throat: denies: Sore throat Respiratory: denies: Cough : denies: Dysuria, Frequency Skin: denies: Rash, Lesions Neurologic: denies: Focal weakness, Numbness, Headache PD PAST MEDICAL HISTORY - Past Medical History Cardiovascular: None Respiratory: None Neuro: Seizure disorder Endocrine/Autoimmune: None - Past Surgical History Past Surgical History: Yes Ortho: Spine surgery Derm: Other - Present Medications Home Medications: Ambulatory Orders Medication Instructions Recorded Confirmed Lacosamide [Vimpat] 100 mg PO BID #60 tablet 10/24/19 08/30/22 oxyCODONE [Roxicodone] 5 mg PO TID PRN #10 tablet 08/30/22 Meclizine HCl [Motion Sickness] 25 mg PO Q6H PRN #30 tablet 02/09/23 diazePAM [Valium] 5 mg PO BID PRN #20 tablet 02/09/23 - Allergies Allergies/Adverse Reactions: Allergies Allergy/AdvReac Type Severity Reaction Status Date / Time No Known Drug Allergies Allergy Verified 02/09/23 09:17 - Social History Does the pt smoke?: Yes Smoking Status: Current every day smoker Does the pt drink ETOH?: Yes Does the pt have substance abuse?: No - Immunizations Immunizations are current?: Yes - POLST Patient has POLST: No PD ED PE NORMAL - Vitals Vital signs reviewed: Yes - General General: Alert and oriented X 3, No acute distress, Well developed/nourished - Neck Neck: Supple, no meningeal sign, No adenopathy - Cardiac Cardiac: RRR, No murmur - Respiratory Respiratory: Clear bilaterally - Abdomen Abdomen: Soft, Non tender - Derm Derm: Normal color, Warm and dry - Neuro Neuro: Alert and oriented X 3, No motor deficit, No sensory deficit, Normal speech Eye Opening: Spontaneous Motor: Obeys Commands Verbal: Oriented GCS Score: 15 Results - Vitals Vitals: Vital Signs - 24 hr 02/09/23 02/09/23 02/09/23 09:14 10:03 12:11 Temperature 36.5 C 36.7 C Heart Rate 96 73 71 Respiratory 20 20 16 Rate Blood Pressure 151/89 H 134/93 H 132/82 H O2 Saturation 100 100 99 Oxygen O2 Source Room air - Labs Labs: Laboratory Tests 02/09/23 02/09/23 10:44 10:44 WBC 6.5 RBC 4.40 Hgb 14.1 Hct 41.5 MCV 94.3 MCH 32.0 H MCHC 34.0 RDW 11.9 L Plt Count 173 MPV 9.5 Neut # (Auto) 5.3 Lymph # (Auto) 0.8 L [place] # (Auto) 0.4 Eos # (Auto) 0.1 Baso # (Auto) 0.0 Absolute Nucleated RBC 0.00 Nucleated RBC % 0.0 Sodium 136 Potassium 4.9 H Chloride 102 Carbon Dioxide 30 Anion Gap 4.0 L BUN 11 Creatinine 0.9 Estimated GFR (MDRD) 70 L Glucose 104 Calcium 9.4 Magnesium 1.9 Total Bilirubin 0.6 AST 12 ALT 11 Alkaline Phosphatase 57 Total Protein 6.4 Albumin 4.6 Globulin 1.8 L Albumin/Globulin Ratio 2.6 H Lipase 19 PD Medical Decision Making - ED course Complexity details: reviewed results (Basic electrolytes and chemistry panel and blood count were normal here. Blood levels of her 3 antiepileptic medications were drawn and are send out for our lab. The results will return in a few days. I notified the patient to inform their neurologist that these were drawn.), re- evaluated patient (She is feeling improved after meclizine and diazepam with less vertigo and shakiness.), considered differential (The onset worsening of symptoms correlates with new medication and increasing doses. The timing during the day is after medication dosings. This seems likely side effect of that. She was having side effects of both oxcarbazepine and the new lamotrigine.), d/w foreign law consultant (Talked with Dr. Stern who is on-call for Dr. Mccoy, And reviewed the symptoms and medication dosages. He suggested decreasing the lamotrigine slightly and the oxcarbazepine as well. Continue the lacosamide as usual. Contact the office to talk with your primary neurologist regarding further.) Departure - Departure Disposition: Home, Self Care Clinical Impression: Medication side effects present Condition: Stable Record reviewed to determine appropriate education?: Yes Prescriptions: Meclizine HCl [Motion Sickness] 25 mg PO Q6H PRN #30 tablet PRN Reason: Vertigo diazePAM [Valium] 5 mg PO BID PRN #20 tablet PRN Reason: Vertigo Comments: I talked with Dr. Stern who is on-call for Dr. Boyle. His recommendation is to continue with your lacosamide at the current dose. Decrease the lamotrigine to 150 mg twice a day down from your current 150 mg in the morning and 200 at e vening. Also you could decrease the oxcarbazepine from half a tablet in the morning and 1 at night down to half at each time or continue it at the current dose for now and just change the moment lamotrigine only. Continue her contact Dr. Mccoy's office for further instructions on the rate of tapering for the lamotrigine. We did do levels of all 3 medications and those will result in a couple of days. Inform your neurologist office that we did do those at Dr. Spence suggestion/request but they may not automatically show up at their office results and may likely need to be requested results from our facility. In the meantime you can use diazepam twice daily if needed for the symptoms/side effects of the medications while we are tapering down. I sent the prescription to [facility] pharmacy at your request. Stay well-hydrated and regular diet and other medicines as usual. Forms: PCP List Discharge Date/Time: 02/09/23 12:12
[2023-02-09] MEDS ORDERED: diazePAM INJ 5 MG/ML SYRINGE IM STA (10:34)
[2023-02-09] MEDS ORDERED: MECLIZINE 12.5 MG TABLET PO STA (10:34)
[2023-02-09 10:48] LABS: BASOPHILS % (AUTO) 0.3 %; EOSINOPHILS # (AUTO) 0.1 10^3/uL (0.0-0.7); EOSINOPHILS % (AUTO) 0.8 %; HCT - HEMATOCRIT 41.5 % (37.0-47.0); HGB - HEMOGLOBIN 14.1 g/dL (12.0-16.0); LYMPHOCYTES # (AUTO) 0.8 10^3/uL (1.5-3.5); LYMPHOCYTES % (AUTO) 12.2 %; MEAN CORPUSCULAR VOLUME 94.3 fL (81.0-99.0); MEAN PLATELET VOLUME 9.5 fL (7.9-10.8); MONOCYTES # (AUTO) 0.4 10^3/uL (0.0-1.0); MONOCYTES % (AUTO) 5.5 %; NEUTROPHILS # (AUTO) 5.3 10^3/uL (1.5-6.6); PLT - PLATELET COUNT 173 10^3/uL (130-450); RED CELL DISTRIBUTION WIDTH 11.9 % (12.0-15.0); WHITE BLOOD COUNT 6.5 x10^3/uL (4.8-10.8)
[2023-02-09 11:05] LABS: ALBUMIN 4.6 g/dL (3.2-5.5); ALBUMIN/GLOBULIN RATIO 2.6 (1.0-2.2); BILIRUBIN,TOTAL 0.6 mg/dL (0.2-1.0); CALCIUM 9.4 mg/dL (8.5-10.3); CREATININE 0.9 mg/dL (0.6-1.3); MAGNESIUM 1.9 mg/dL (1.7-2.3); POTASSIUM 4.9 mmol/L (3.5-4.5); TOTAL PROTEIN 6.4 g/dL (6.4-8.9)
[2023-02-09 12:17] VITALS: BP 132/82; O2SAT 99
[2023-02-12 15:09] LABS: LAMOTRIGINE (LAMICTAL) 5.7 ug/mL (2.0-20.0)
[2023-02-13 12:09] LABS: LACOSAMIDE 4.5 ug/mL (5.0-10.0)
== END 2023-02-09 12:12 | disposition home or self-care (01) ==
LOC: ED 09:10
DX: R42 Dizziness and giddiness (principal); T42.6X5A Adverse effect of other antiepileptic and sedative-hypnotic drugs, initial encounter; F17.200 Nicotine dependence, unspecified, uncomplicated
CPT/HCPCS: 36415; 80053; 80175; 80235; 83690; 83735; 85025; 96372; 99283; 99284; A9270

== ENCOUNTER 2023-12-02 11:23 | Outpatient (CLI) | payer OTHER | END 2023-12-02 23:59 | disposition EMS.NT | LOC: EMS 11:23 | DX: R56.9 Unspecified convulsions (principal) ==